=== PATIENT | male | born 1965 | race Caucasian/White ===

== ENCOUNTER 2020-03-18 16:43 | Emergency (ER) | payer MEDICAID ==
[~2020-03-18] VITALS: Ht 180.3 cm; Wt 82.0 kg
[2020-03-18] MEDS ORDERED: GLUCAGON,HUMAN RECOMBINANT 1 MG KIT. IV ONE (17:00)
--- NOTE | 2020-03-18 17:25 | PHYS DOC ---
Past History Additional Past Medical Histor: MS Past Surgical History: No Surgical History Smoking: Non-smoker Alcohol Use: None Drug Use: None General Adult EDM: Chief Complaint: DIFFICULTY SWALLOWING HPI: HPI: 55-year-old male presents with report of sensation that food bolus is stuck in his esophagus. Patient does have past medical history of MS. Reports history of prior food bolus issues that required GI intervention. Reports he does not follow closely with GI. Reports he has had some problems with acid reflux but is currently not being treated with any medication. Reports was at local [employer] and eating a hamburger. Reports tried to get food bolus to pass with drinking liquid however liquid would "immediately come right back up ". Review of Systems: Review of Systems: Constitutional: Denies fever or chills Eyes: Denies redness or eye pain HENT: Denies nasal congestion or sore throat Respiratory: Denies cough or shortness of breath Cardiovascular: Reports chest discomfort; denies palpitation GI: Denies abdominal pain, nausea, or vomiting : Denies dysuria or hematuria Musculoskeletal: Denies back pain or joint pain Integument: Denies rash or skin lesions Neurologic: Denies headache, focal weakness or sensory changes Complete systems were reviewed and found to be within normal limits, except as documented in this note. Current Medications: Current Meds: Current Medications Medications (Trade) Dose Ordered Sig/Cy Start Time Stop Time Status Last Admin Dose Admin Glucagon (Glucagen Kit) 1 mg 1X ONCE 03/18/20 17:00 03/18/20 17:07 DC 03/18/20 17:09 1 MG Allergies: Allergies: Allergies Coded Allergies Type Severity Reaction Last Updated Verified No Known Drug Allergies 03/18/20 No Physical Exam: PE: Constitutional: Well developed, well nourished, no acute distress, non-toxic appearance HENT: Normocephalic, atraumatic, oropharynx moist Eyes: Conjunctiva normal, no discharge Neck: Normal range of motion, no tenderness, supple, no stridor Cardiovascular: Heart rate normal, regular rhythm Lungs & Thorax: Bilateral breath sounds clear to auscultation, no wheezing Abdomen: Soft, no tenderness, no guarding/rebound tenderness/distention Skin: Warm, dry, no erythema, no rash Extremities: No tenderness, ROM intact, no edema Neurologic: Alert and oriented X 3, speech normal Psychologic: Affect normal, judgment normal EKG: EKG: [] Radiology/Procedures: Radiology/Procedures: [] Course & Med Decision Making: Course & Med Decision Making Patient presents with history of present illness and physical exam concerning for esophageal food bolus. Reports history of prior food bolus requiring intervention with GI lab. Ports had been eating a hamburger at the local [employer]. Doubt that patient swallowed any bone. Patient also with history of MS. Glucagon provided. Trialed Sprite after 30 mins with interval resolution of symptoms. Patient able to drink Sprite without issue. Patient stable for discharge with outpatient follow-up with PCP/GI. GI referral provided. Discussed findings and plan with patient, who acknowledges understanding and agreement. Dragon Disclaimer: Dragon Disclaimer: This electronic medical record was generated, in whole or in part, using a voice recognition dictation system. Departure Departure: Impression: Primary Impression: Esophageal obstruction due to food impaction Disposition: HOME, SELF-CARE Condition: IMPROVED Referrals: PCP,JOSH (PCP) [place] MD Patient Instructions: Diet - Soft, Esophageal Stricture, Gastroesophageal Reflux Disease, Adult, [id number] Famotidine (PEPCID) 20 Mg Tablet 1 TAB PO BID for GERD, #30 TAB Prov: ALEXANDER BANDA DO 03/18/20 ALEXANDER BANDA DO March 18, 2020 17:25
[2020-03-18] MEDS ORDERED: FAMO-63 PO (17:48)
== END 2020-03-18 17:53 | disposition home or self-care (01) ==
LOC: ER 16:43
DX: K22.2 Esophageal obstruction (principal); R07.89 Other chest pain
CPT/HCPCS: 96374; 99283; J1610